=== PATIENT | male | born 1945 | race Caucasian/White ===

== ENCOUNTER 2017-12-18 02:07 | Outpatient (CLI) | payer MEDICARE, BC, SELFPAY ==
[2017-12-18 11:30] LABS: BUN 21 mg/dL (7-18); CREATININE 1.07 mg/dL (0.70-1.30); Calcium 8.6 mg/dL (8.5-10.1); Chloride 106 mmol/L (98-107); Cholesterol 240 mg/dL (50-200); Glucose 95 mg/dL (70-100); HDL Cholesterol 58 mg/dL (40-60); LDL CHOLESTEROL 164 mg/dL (<100); Potassium 4.3 mmol/L (3.5-5.1); Sodium 143 mmol/L (136-145); Triglyceride 119 mg/dL (30-150)
[2017-12-19 09:34] LABS: Hepatitis C Ab w Rflx HCV PCR Negative (NEGAT)
== END 2017-12-18 02:27 ==
PROVIDERS: PCP Family Medicine; Visit Provider Family Medicine
DX: I10 Essential (primary) hypertension (principal); E78.5 Hyperlipidemia, unspecified; Z11.59 Encounter for screening for other viral diseases
CPT/HCPCS: 36415; 80048; 80061; 83721; 86803

== ENCOUNTER 2018-03-25 12:44 | Outpatient (REF) | payer MEDICARE, BC, SELFPAY | END 2018-03-25 13:04 | LOC: LBN 12:44 | PROVIDERS: PCP Family Medicine; Visit Provider Family Medicine | DX: B08.4 Enteroviral vesicular stomatitis with exanthem (principal) | CPT/HCPCS: 87070; 87205 ==

== ENCOUNTER 2018-06-19 01:30 | Outpatient (CLI) | payer MEDICARE, BC, SELFPAY ==
[2018-06-19 10:54] LABS: ALT 43 U/L (12-78); AST 31 U/L (15-37); Albumin 3.6 g/dL (3.4-5.0); Alkaline Phosphatase 87 U/L (46-116); Anion Gap 7.8 mmol/L (3-11); BUN 24 mg/dL (7-18); Bilirubin, Total 0.6 mg/dL (0.2-1.0); CO2 29.2 mmol/L (21.0-32.0); CREATININE 1.01 mg/dL (0.70-1.30); Calcium 9.2 mg/dL (8.5-10.1); Chloride 104 mmol/L (98-107); Cholesterol 219 mg/dL (50-200); Glucose 94 mg/dL (70-100); HDL Cholesterol 47 mg/dL (40-60); LDL CHOLESTEROL 140 mg/dL (<100); Potassium 4.1 mmol/L (3.5-5.1); Sodium 141 mmol/L (136-145); Total Protein 6.9 g/dL (6.4-8.2); Triglyceride 136 mg/dL (30-150)
== END 2018-06-19 01:50 ==
PROVIDERS: PCP Family Medicine; Visit Provider Family Medicine
DX: E78.5 Hyperlipidemia, unspecified (principal); I10 Essential (primary) hypertension
CPT/HCPCS: 36415; 80053; 80061; 83721

== ENCOUNTER 2018-12-17 03:34 | Outpatient (CLI) | payer MEDICARE, BC, SELFPAY ==
[2018-12-17 11:02] LABS: Anion Gap 7.8 mmol/L (3-11); BUN 23 mg/dL (7-18); CO2 27.2 mmol/L (21.0-32.0); CREATININE 1.13 mg/dL (0.70-1.30); Calcium 8.8 mg/dL (8.5-10.1); Calculated LDL 140 mg/dL; Chloride 106 mmol/L (98-107); Cholesterol 214 mg/dL (50-200); Glucose 95 mg/dL (70-100); HDL Cholesterol 51 mg/dL (40-60); Potassium 4.3 mmol/L (3.5-5.1); Sodium 141 mmol/L (136-145); Triglyceride 116 mg/dL (30-150)
== END 2018-12-17 03:54 ==
PROVIDERS: PCP Family Medicine; Visit Provider Family Medicine
DX: E78.5 Hyperlipidemia, unspecified (principal); I10 Essential (primary) hypertension
CPT/HCPCS: 36415; 80048; 80061

== ENCOUNTER 2019-11-22 03:48 | Outpatient (CLI) | payer MEDICARE, BC, SELFPAY ==
[2019-11-22 13:23] LABS: Anion Gap 9.3 mmol/L (3-11); BUN 20 mg/dL (7-18); CO2 25.7 mmol/L (21.0-32.0); CREATININE 1.03 mg/dL (0.70-1.30); Calculated LDL 151 mg/dL (<100); Chloride 107 mmol/L (98-107); Cholesterol 225 mg/dL (<200); Glucose 94 mg/dL (74-106); HDL Cholesterol 52 mg/dL (40-60); Potassium 4.1 mmol/L (3.5-5.1); Sodium 142 mmol/L (136-145); Triglyceride 110 mg/dL (<150)
[2019-11-23 17:41] LABS: PSA, Screening 1.2 ng/mL (0.0-6.5)
== END 2019-11-22 04:08 ==
PROVIDERS: PCP Nurse Practitioner; Visit Provider Family Medicine
DX: I10 Essential (primary) hypertension (principal); Z12.5 Encounter for screening for malignant neoplasm of prostate
CPT/HCPCS: 36415; 80048; 80061; 84153

== ENCOUNTER 2021-01-15 02:02 | Outpatient (CLI) | payer MEDICARE, BC, SELFPAY ==
[2021-01-15 13:07] LABS: ALT 54 U/L (16-63); Anion Gap 9.6 mmol/L (3-11); BUN 26 mg/dL (7-18); CO2 26.4 mmol/L (21.0-32.0); CREATININE 1.1 mg/dL (0.70-1.30); Calcium 8.8 mg/dL (8.5-10.1); Calculated LDL 159 mg/dL (<100); Chloride 107 mmol/L (98-107); Cholesterol 234 mg/dL (<200); Glucose 96 mg/dL (74-106); HDL Cholesterol 62 mg/dL (40-60); Potassium 4.2 mmol/L (3.5-5.1); Sodium 143 mmol/L (136-145); Triglyceride 66 mg/dL (<150)
== END 2021-01-15 02:03 | disposition home or self-care (01) ==
PROVIDERS: PCP Family Medicine; Visit Provider Family Medicine
DX: I10 Essential (primary) hypertension (principal); E78.5 Hyperlipidemia, unspecified
CPT/HCPCS: 36415; 80048; 80061; 84460

== ENCOUNTER 2021-05-02 15:01 | Outpatient (CLI) | payer MEDICARE, SELFPAY ==
--- NOTE | 2021-05-02 11:00 | DI.RAD_ITS ---
Exam(s) XR SHOULDER LT COMPLETE 2+V EXAM: XR SHOULDER LT COMPLETE 2+V CLINICAL HISTORY: evaluation. TECHNIQUE: 2D digital imaging was performed. COMPARISON: No exams were available for comparison FINDINGS: BONES: No acute fracture is present. No bony destructive lesion is seen. JOINTS: No dislocation present. There is prominent spurring superiorly with multiple bony densities at the AC joint. Glenohumeral joint is well maintained shows minimal spurring. SOFT TISSUE: Calcification distal supraspinatus tendon, calcific tendinosis. 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 DATA REPOSITORY: RADIATION DOSE DELIVERED:
== END 2021-05-02 15:02 | disposition home or self-care (01) ==
LOC: DIORS 15:02
PROVIDERS: PCP Family Medicine; Referring Provider Family Medicine; Visit Provider Student in an Organized Health Care Education/Training Program
DX: M25.512 Pain in left shoulder (principal); M75.22 Bicipital tendinitis, left shoulder; M75.102 Unspecified rotator cuff tear or rupture of left shoulder, not specified as traumatic; M12.812 Other specific arthropathies, not elsewhere classified, left shoulder; M75.52 Bursitis of left shoulder; G89.29 Other chronic pain
CPT/HCPCS: 20610; 99203; 73030; J1030

== ENCOUNTER → 2021-07-25 10:42 | Outpatient (BNVA) | payer MEDICARE, SELFPAY | PROVIDERS: PCP Family Medicine; Referring Provider Family Medicine; Visit Provider Student in an Organized Health Care Education/Training Program | DX: M75.22 Bicipital tendinitis, left shoulder (principal); M75.32 Calcific tendinitis of left shoulder | CPT/HCPCS: 99213 ==

== ENCOUNTER 2022-04-23 01:49 | Outpatient (CLI) | payer MEDICARE, SELFPAY ==
[2022-04-23 12:52] LABS: Calculated LDL 108 mg/dL (<100); Cholesterol 181 mg/dL (<200); Glucose 93 mg/dL (74-106); HDL Cholesterol 53 mg/dL (40-60); Triglyceride 100 mg/dL (<150)
== END 2022-04-23 01:50 | disposition home or self-care (01) ==
LOC: LOS 01:50
PROVIDERS: PCP Family Medicine; Visit Provider Family Medicine
DX: E78.5 Hyperlipidemia, unspecified (principal); R73.9 Hyperglycemia, unspecified
CPT/HCPCS: 36415; 80061; 82947

== ENCOUNTER 2023-04-24 04:43 | Outpatient (CLI) | payer MEDICARE, SELFPAY ==
[2023-04-24 12:55] LABS: Calculated LDL 121 mg/dL (<100); Cholesterol 200 mg/dL (<200); Glucose 99 mg/dL (74-106); HDL Cholesterol 54 mg/dL (40-60); Triglyceride 128 mg/dL (<150)
== END 2023-04-24 04:44 | disposition home or self-care (01) ==
LOC: LOS 04:43
PROVIDERS: PCP Family Medicine; Visit Provider Family Medicine
DX: E78.5 Hyperlipidemia, unspecified (principal); R73.9 Hyperglycemia, unspecified
CPT/HCPCS: 36415; 80061; 82947

== ENCOUNTER 2024-01-12 15:22 | Outpatient (CLI) | payer MEDICARE, SELFPAY ==
--- NOTE | 2024-01-12 08:00 | DI.RAD_ITS ---
Exam(s) XR KNEE LT 3V AP,LAT,ALFONSO EXAM: XR KNEE LT 3V AP,LAT,ALFONSO CLINICAL HISTORY: LEFT KNEE PAIN. TECHNIQUE: 2D digital imaging was performed of the left knee. Four images were obtained. Merchant, AP, lateral and PA tunnel views were obtained. COMPARISON: CR BILATERAL HIPS ADULT from 11/18/2016 FINDINGS: BONES: No acute fracture is present. No bony destructive lesion is seen. There is a question of an o steochondral injury seen in the medial femoral condyle. JOINTS: The knee is normally aligned. No joint effusion is seen. No loose body. SOFT TISSUE: Soft tissue calcifications are seen in the proximal lower leg which may be vascular. IMPRESSION: Question of an osteochondral injury in the medial femoral condyle. An MRI of the knee should be cons idered for further evaluation. DATA REPOSITORY: RADIATION DOSE DELIVERED:
== END 2024-01-12 15:23 | disposition home or self-care (01) ==
LOC: DIORS 15:22
PROVIDERS: PCP Family Medicine; Referring Provider Family Medicine; Visit Provider Student in an Organized Health Care Education/Training Program
DX: M17.12 Unilateral primary osteoarthritis, left knee; M76.32 Iliotibial band syndrome, left leg
CPT/HCPCS: 73562; 99213

== ENCOUNTER 2024-04-07 03:04 | Outpatient (CLI) | payer MEDICARE, SELFPAY ==
--- NOTE | 2024-04-07 07:00 | DI.RAD_ITS ---
Exam(s) XR FOOT RT COMPLETE EXAM: XR FOOT RT COMPLETE CLINICAL HISTORY: Right foot pain,m79.671. TECHNIQUE: 2D digital imaging was performed of the right foot. Three images were obtained. AP, obl ique and lateral views were obtained. COMPARISON: No exams were available for comparison FINDINGS: BONES: No acute fracture is present. No bony destructive lesion is seen. There is an enthesophyte at the posterior calcaneus. JOINTS: No dislocation present. There are moderate degenerative changes seen at the 1st MTP joint katalina racterized by joint space narrowing and osteophytes. The joint spaces are otherwise well maintained. SOFT TISSUE: Normal. 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
== END 2024-04-07 03:24 ==
LOC: DI 03:04
PROVIDERS: PCP Family Medicine; Visit Provider Podiatrist
DX: M79.671 Pain in right foot (principal); B07.0 Plantar wart; M20.21 Hallux rigidus, right foot
CPT/HCPCS: 17110; 99214; 73630

== ENCOUNTER → 2024-05-19 11:02 | Outpatient (BNVA) | payer MEDICARE, SELFPAY | PROVIDERS: PCP Family Medicine; Referring Provider Family Medicine; Visit Provider Podiatrist | DX: B07.0 Plantar wart (principal); M79.671 Pain in right foot; M20.21 Hallux rigidus, right foot | CPT/HCPCS: 17110 ==

== ENCOUNTER 2024-05-24 01:55 | Outpatient (CLI) | payer MEDICARE, SELFPAY ==
[2024-05-24 12:39] LABS: Calculated LDL 120 mg/dL (<100); Cholesterol 205 mg/dL (<200); HDL Cholesterol 57 mg/dL (>or=40); Triglyceride 142 mg/dL (<150)
[2024-05-24 17:14] LABS: PSA, Screening 1.2 ng/mL (<=6.5)
== END 2024-05-24 01:56 | disposition home or self-care (01) ==
LOC: LOS 01:55
PROVIDERS: PCP Family Medicine; Visit Provider Family Medicine
DX: Z12.5 Encounter for screening for malignant neoplasm of prostate (principal); E78.5 Hyperlipidemia, unspecified
CPT/HCPCS: 36415; 80061; 84153

== ENCOUNTER 2024-08-24 15:20 | Outpatient (CLI) | payer MEDICARE, SELFPAY ==
--- NOTE | 2024-08-24 13:45 | DI.RAD_ITS ---
Exam(s) XR SHOULDER RT COMPLETE 2+V EXAM: XR SHOULDER RT COMPLETE 2+V CLINICAL HISTORY: BILATERAL SHOULDER PAIN. TECHNIQUE: 2D digital imaging was performed of the right shoulder. Two images were obtained. Grashey and axillary views were obtained. COMPARISON: No exams were available for comparison FINDINGS: BONES: No acute fracture is present. No bony destructive lesion is seen. JOINTS: No dislocation present. There are moderate degenerative changes seen at the acromioclavicular joint. The glenohumeral joint is well maintained. SOFT TISSUE: Normal. IMPRESSION: Degenerative changes of the acromioclavicular joint. DATA REPOSITORY: RADIATION DOSE DELIVERED:
--- NOTE | 2024-08-24 13:45 | DI.RAD_ITS ---
Exam(s) XR SHOULDER LT COMPLETE 2+V EXAM: XR SHOULDER LT COMPLETE 2+V CLINICAL HISTORY: BILATERAL SHOULDER PAIN. TECHNIQUE: 2D digital imaging was performed of the left shoulder. Two images were obtained. Axillary and Grashey views were obtained. COMPARISON: CR XR SHOULDER LT COMPLETE 2+V from 05/02/2021 FINDINGS: BONES: No acute fracture is present. No bony destructive lesion is seen. JOINTS: No dislocation present. The glenohumeral joint is well maintained. There are degenerative changes seen at the acromioclavicular joint. SOFT TISSUE: There is again seen prominent soft tissue calcification around the acromioclavicular joint which appears stable. IMPRESSION: Overall, stable appearance of the left acromioclavicular joint. No acute abnormality. DATA REPOSITORY: RADIATION DOSE DELIVERED:
== END 2024-08-24 15:21 | disposition home or self-care (01) ==
LOC: DIORS 15:20
PROVIDERS: PCP Family Medicine; Referring Provider Family Medicine; Visit Provider Physician Assistant
DX: M25.511 Pain in right shoulder (principal); M25.512 Pain in left shoulder; M75.51 Bursitis of right shoulder; M75.52 Bursitis of left shoulder; M75.81 Other shoulder lesions, right shoulder; M75.82 Other shoulder lesions, left shoulder
CPT/HCPCS: 99214; 20610; J1010; 73030

== ENCOUNTER 2024-09-07 04:11 | Outpatient (CLI) | payer MEDICARE, SELFPAY ==
[2024-09-07 13:20] LABS: ALT 123 U/L (16-63); AST 81 U/L (15-37); Albumin 2.8 g/dL (3.4-5.0); Alkaline Phosphatase 252 U/L (46-116); Anion Gap 8.3 mmol/L (3-11); BUN 23 mg/dL (7-18); Bilirubin, Total 0.7 mg/dL (0.2-1.0); CO2 26.7 mmol/L (21.0-32.0); Calcium 9.2 mg/dL (8.5-10.1); Chloride 99 mmol/L (98-107); Estimated GFR 77.52 (mL/min/1.73m2); Glucose 113 mg/dL (74-106); Potassium 4.2 mmol/L (3.5-5.1); Sodium 134 mmol/L (136-145); Total Protein 8.1 g/dL (6.4-8.2); Vitamin B12 776 pg/mL (193-986)
[2024-09-07 13:29] LABS: C-Reactive Protein 10.49 mg/dL (<or=0.5)
[2024-09-07 22:51] LABS: PSA, Screening 2.1 ng/mL (<=6.5)
[2024-09-08 12:59] LABS: Lyme Ab w Rflx to Lyme Confirm Positive (Negative)
[2024-09-08 15:27] LABS: Lyme IgG Ab Negative (Negative)
[2024-09-10 15:25] LABS: B. miyamotoi PCR Negative (Negative); Babesia divergens/MO-1 Negative (Negative); Ehrlichia muris eauclairensis Negative (Negative)
== END 2024-09-07 04:12 | disposition home or self-care (01) ==
PROVIDERS: PCP Family Medicine; Visit Provider Nurse Practitioner Family
DX: M35.3 Polymyalgia rheumatica (principal); Z12.5 Encounter for screening for malignant neoplasm of prostate; M62.81 Muscle weakness (generalized)
CPT/HCPCS: 36415; 80053; 84153; 86617; 87798; 82607; 86038; 86140; 86618

== ENCOUNTER 2024-09-08 09:43 | Outpatient (CLI) | payer MEDICARE, SELFPAY ==
[2024-09-08 12:27] LABS: ESR 93 mm/hr (0-20)
== END 2024-09-08 09:44 | disposition home or self-care (01) ==
LOC: LOS 09:46
PROVIDERS: PCP Family Medicine; Visit Provider Family Medicine
DX: M62.81 Muscle weakness (generalized) (principal)
CPT/HCPCS: 36415; 85652

== ENCOUNTER 2024-09-16 02:09 | Outpatient (CLI) | payer MEDICARE, SELFPAY | END 2024-09-16 02:10 | disposition home or self-care (01) | LOC: LBO 02:10 | PROVIDERS: PCP Family Medicine; Visit Provider Family Medicine | DX: R76.8 Other specified abnormal immunological findings in serum (principal) | CPT/HCPCS: 36415; 86225 ==

== ENCOUNTER 2024-10-05 09:44 | Outpatient (CLI) | payer MEDICARE, SELFPAY ==
[2024-10-05 12:27] LABS: ESR 17 mm/hr (0-20)
[2024-10-05 12:55] LABS: ALT 37 U/L (16-63); AST 22 U/L (15-37); Albumin 2.9 g/dL (3.4-5.0); Alkaline Phosphatase 125 U/L (46-116); Bilirubin, Direct 0.1 mg/dL (0.0-0.2); Bilirubin, Total 0.6 mg/dL (0.2-1.0); C-Reactive Protein 8.66 mg/dL (<or=0.5); Total Protein 7.0 g/dL (6.4-8.2)
== END 2024-10-05 09:45 | disposition home or self-care (01) ==
LOC: LOS 09:44
PROVIDERS: PCP Family Medicine; Visit Provider Family Medicine
DX: M35.3 Polymyalgia rheumatica (principal); R41.89 Other symptoms and signs involving cognitive functions and awareness; G72.89 Other specified myopathies
CPT/HCPCS: 36415; 80076; 85652; 86140

== ENCOUNTER 2024-11-30 04:55 | Outpatient (CLI) | payer MEDICARE, SELFPAY ==
--- NOTE | 2024-11-30 13:30 | DI.RAD_ITS ---
Exam(s) XR WRIST LT COMP NAVICULAR EXAM: XR WRIST LT COMP NAVICULAR CLINICAL HISTORY: M25.532 Pain LT wrist,Fall on out which is stretch of the left wrist lamar. TECHNIQUE: 2D digital imaging was performed. Three views. COMPARISON: No exams were available for comparison FINDINGS: BONES: No acute fracture is present. No bony destructive lesion is seen. JOINTS: The carpal bones are normally aligned. There are mild degenerative changes at the 1st carpal metacarpal joint. SOFT TISSUE: Normal. IMPRESSION: No acute abnormality. DATA REPOSITORY: RADIATION DOSE DELIVERED:
== END 2024-11-30 05:15 ==
LOC: DI 12-01 04:56
PROVIDERS: PCP Family Medicine; Visit Provider Physician Assistant Medical
DX: M25.532 Pain in left wrist (principal)
CPT/HCPCS: 73110

== ENCOUNTER 2024-12-09 08:32 | Outpatient (CLI) | payer MEDICARE, SELFPAY | END 2024-12-09 08:33 | disposition home or self-care (01) | LOC: LOS 08:32 | PROVIDERS: PCP Family Medicine; Visit Provider Urology | DX: R97.20 Elevated prostate specific antigen [PSA] (principal) | CPT/HCPCS: 36415; 84154 ==